=== PATIENT | female | born 1980 | race Caucasian/White ===

== ENCOUNTER 2023-04-26 02:03 | Observation (INO) ==
[2023-04-26] MEDS ORDERED: IOPAMIDOL 100 ML BOTTLE IV ONE (02:04)
[2023-04-26] MEDS ORDERED: 0.9 % SODIUM CHLORIDE 1,000 ML IV ONE (02:08)
[2023-04-26] MEDS ORDERED: PHENobarb/HYOSCY/ATROPINE/SCOP 1 DOSE BOTTLE PO ONE (02:19)
[2023-04-26] MEDS ORDERED: ONDANSETRON 4 MG/2 ML VIAL IV ONE (02:19)
[2023-04-26 02:33] LABS: POC Calcium, Ionized 1.11 (1.16-1.32); POC Creatinine 0.7 (0.6-1.2); POC Potassium 4.1 (3.3-5.1)
--- NOTE | 2023-04-26 02:41 | Emergency Department Note ---
Abdominal Pain HPI General Chief Complaint: Abdominal Pain Stated Complaint: upper abd pain Time Seen by Provider: 04/26/23 02:08 Source: patient Mode of arrival: ambulatory Limitations: no limitations History of Present Illness HPI Narrative: Narrative: Patient presents to the ED with complaints of acute on chronic abdominal pain. States he has had this abdominal pain for a few years. States over the last 3 weeks the pain has been more frequent over the last 48 hours the pain has become unbearable. She rates her pain 8/10. She reports in her epigastrium and radiates into her right upper quadrant. She reports associated nausea, fever and chills. Patient denies vomiting, diarrhea, dysuria, hematuria, urinary frequency, cardiac chest pain, heart palpitations, shortness of breath. Patient denies any other alleviating or aggravating factors. Related Data Home Medications Medication Instructions Recorded Confirmed No Known Home Meds 04/26/23 04/26/23 Allergies Allergy/AdvReac Type Severity Reaction Status Date / Time NO KNOWN DRUG ALLERGIES Allergy Unknown NONE Uncoded 04/04/15 18:59 Review of Systems ROS ROS Narrative: Narrative: All systems ED: reviewed and negative except as stated. [facility] Narrative Patient History Narrative: Narrative: Medical/Surgical/Family History All Active Problems (Updated 04/26/23 @ 06:21 by Con Hansen DO) Acute left-sided thoracic back pain (Acute) Acute cholecystitis (Acute) Social History Smoking Status: Current every day smoker Exam Narrative Narrative: Narrative: General Limitations: no limitations General appearance: Present grimacing; Absent in distress ENT ENT: Present normal oropharynx and mucous membranes moist Respiratory Respiratory: Present normal lung sounds bilaterally; Absent respiratory distress Cardiovascular Cardiovascular: Present regular rate and normal rhythm Adbominal Abdominal: Present soft, tenderness and normal bowel sounds Expanded Abdominal Abdominal Tenderness: Present RUQ and epigastrium Extremities Extremities: Present normal capillary refill Back Back: Absent CVA tenderness (R) or CVA tenderness (L) Neurological Neurological: Present oriented X3 and normal gait Psychiatric Psychiatric: Present normal affect and normal mood Skin Skin: Present warm (WNL) and intact Course Course Course Narrative: Patient was evaluated for abdominal pain. UA was obtained unremarkable. Urine was negative. Patient was given IV fluids, IV Toradol and IV fentanyl for discomfort. Labs were obtained show that patient had a normal white cell count or leukocytosis. Renal functions intact. CT abdomen pelvis obtained with image reviewed myself which revealed cholecystitis. IV morphine was ordered for additional pain relief. Case was discussed with on-call surgeon, Dr. Zuñiga, who request that her CRP and abdominal ultrasound be obtained and he will come down and evaluate the patient before making his recommendations. Consultations Consultation #1: Case discussed with on-call surgeon, Dr. Zuñiga, who recommends that we obtain a CRP and abdominal ultrasound he will come down evaluate the patient. Time: 06:18 Vital Signs Vital signs: Vital Signs Temperature 98.1 F 04/26/23 02:04 Pulse Rate 84 04/26/23 02:04 Respiratory Rate 18 04/26/23 02:04 Blood Pressure 180/105 04/26/23 02:04 Pulse Oximetry (%) 98 04/26/23 02:04 Oxygen Delivery Method Room Air 04/26/23 02:04 Temperature 98.1 F 04/26/23 02:04 Pulse Rate 73 04/26/23 05:56 Respiratory Rate 18 04/26/23 03:35 Blood Pressure 145/106 04/26/23 05:56 Pulse Oximetry (%) 97 04/26/23 05:02 Oxygen Delivery Method Room Air 04/26/23 02:04 [facility] MDM Narrative Medical decision making narrative: Narrative: Differential Diagnosis Differential Diagnosis: Cholecystitis, GERD, pancreatitis Medical Records Medical records reviewed: Yes I reviewed the patient's medical records. Lab Data Lab results reviewed: Yes I reviewed the patient's lab results. 04/26/23 02:20 Labs: Lab Results 04/26/23 04/26/23 04/26/23 Range/Units 02:20 02:20 02:30 WBC 9.0 (4.5-11.0) K/mcL RBC 4.66 (3.59-5.38) M/mcL Hgb 15.2 (11.2-15.7) g/dL Hct 43.8 (34.1-44.9) % POC Hct 46.0 (36-48) MCV 94.0 (80.0-100.0) fL MCH 32.6 (26.0-34.0) pg MCHC 34.7 (31.0-36.0) g/dL RDW 11.9 (11.5-14.5) % Plt Count 387 (140-440) K/mcL MPV 9.1 (8.8-12.5) fL Immature Gran % (Auto) 0.3 (0.0-0.5) % Neut % (Auto) 67.5 (38.0-78.0) % Lymph % (Auto) 22.9 (15.5-49.0) % [place] % (Auto) 6.7 (1.0-12.0) % Eos % (Auto) 2.0 (0.0-7.0) % Baso % (Auto) 0.6 (0.0-2.0) % Lymph # (Auto) 2.07 (1.50-4.80) K/mcL [place] # (Auto) 0.60 (0.10-0.90) K/mcL Eos # (Auto) 0.18 (0.00-0.70) K/mcL Baso # (Auto) 0.05 (0.00-0.30) K/mcL Immature Gran # 0.03 (0.00-0.05) K/mcl Absolute Neutrophils 6.09 (1.80-8.00) K/mcL POC Sodium 137 (133-145) POC Potassium 4.1 (3.3-5.1) POC Chloride 99 (96-108) POC Total CO2 26.0 (22-30) POC Anion Gap 17.0 H (8.0-16.0) POC BUN 11 (6-20) POC Creatinine 0.7 (0.6-1.2) POC Glucose 113 H (70-105) POC WB Ioniz Calcium 1.11 L (1.16-1.32) Total Bilirubin 0.5 (0.1-1.0) mg/dL Direct Bilirubin < 0.2 (0-0.3) mg/dL AST 18 (<32) U/L ALT 15 (<40) U/L Alkaline Phosphatase 108 (39-117) U/L Total Protein 7.6 (5.9-8.4) gm/dL Albumin 4.5 (3.2-5.2) gm/dL Globulin 3.1 (2.2-3.7) gm/dL Amylase 27 L (28-100) U/L Lipase 23 (7-60) U/L Radiology Data Radiology results reviewed: Yes I reviewed the patient's radiology results. Radiology results narrative: CT abdomen pelvis obtained with image reviewed myself consistent with cholecystitis Core Measures AMI Core Measures Followed: Yes Discharge Plan Patient/Caregiver Discharge Instructions Pt seen by AUT[employer] TENDER/PA only: No Clinical Impression: Acute cholecystitis Patient Disposition: Still a Patient Condition: Good Follow up with: Ortega Francois ARNP [Primary Care Provider] - Prescriptions: No Action No Known Home Meds
[2023-04-26 03:14] LABS: Basophils # (Auto) 0.05 K/mcL (0.00-0.30); Basophils % (Auto) 0.6 % (0.0-2.0); Eosinophils # (Auto) 0.18 K/mcL (0.00-0.70); Hematocrit 43.8 % (34.1-44.9); Hemoglobin 15.2 g/dL (11.2-15.7); Lymphocytes # (Auto) 2.07 K/mcL (1.50-4.80); Lymphocytes % (Auto) 22.9 % (15.5-49.0); Mean Corpuscular HGB Conc 34.7 g/dL (31.0-36.0); Mean Platelet Volume 9.1 fL (8.8-12.5); Monocytes % (Auto) 6.7 % (1.0-12.0); Neutrophils % (Auto) 67.5 % (38.0-78.0); Platelet Count 387 K/mcL (140-440); RBC 4.66 M/mcL (3.59-5.38); Red Cell Distribution Width 11.9 % (11.5-14.5)
[2023-04-26] MEDS ORDERED: fentaNYL 100 MCG/2 ML VIAL IV ONE ×2 (03:15→12:58)
[2023-04-26] MEDS ORDERED: KETOROLAC 30 MG/ML VIAL IV ONE (03:15)
[2023-04-26 03:24] LABS: ALT/SGPT 15 U/L (<40); AST/SGOT 18 U/L (<32); Albumin 4.5 gm/dL (3.2-5.2); Alkaline Phosphatase 108 U/L (39-117); Amylase 27 U/L (28-100); Bilirubin,Direct < 0.2 mg/dL (0-0.3); Bilirubin,Total 0.5 mg/dL (0.1-1.0); Globulin 3.1 gm/dL (2.2-3.7)
[2023-04-26] MEDS ORDERED: morphine 2 MG/ML VIAL IV ONE (03:38)
[2023-04-26] MEDS: morphine 2 MG/ML VIAL IV PRN ×3 (03:54→07:38)
--- NOTE | 2023-04-26 05:17 | Cat Scan Report ---
CLINICAL INFORMATION: Upper abdominal pain. COMPARISON: None. TECHNIQUE: 80 cc of Isovue-370 were injected intravenously, and 60 seconds later, 0.625 mm helical slices were obtained from the mid heart through the subtrochanteric regions. Following reconstruction, 2.5 mm sagittal, coronal and axial reformatted images were processed and reviewed at bone, lung and soft tissue windows. Five minutes later, 0.625 mm helical slices were obtained from the mid heart through the kidneys and viewed at soft tissue windows.The exam was performed using radiation dose optimization techniques including, but not limited to, automated exposure control, adjustment of the mA and/or kV according to patient size and use of iterative reconstruction technique. FINDINGS: The lung bases are clear. No effusions. The visualized heart is grossly normal. Abdominal images show the joint mild gallbladder enlargement with wall thickening and multiple stones compatible with cholecystitis. The intrahepatic and common bile ducts are normal caliber the CBD is 6 mm. Mild fatty changes noted within the liver. There is an 11 mm simple cyst in the left hepatic lobe. Both kidneys, adrenal glands, spleen, pancreas and aorta, including aortic branches, are normal in size, configuration and attenuation without focal lesion. There is no free air, free fluid or adenopathy. Pelvic images show normal urinary bladder. Uterus and both ovaries are normal in size, configuration and attenuation. The stomach, small bowel, and large bowel are grossly normal. Appendectomy change are acknowledged Bone windows show no osseous abnormality IMPRESSION: Cholecystitis Interpreted and Authenticated by: Jony Guerin 04/26/23
--- NOTE | 2023-04-26 09:30 | Ultrasound Report ---
CLINICAL INFORMATION: Right upper quadrant pain COMPARISON: Abdomen and pelvic CT 04/26/2023 FINDINGS: Gallbladder is mildly enlarged with diffuse wall thickening and focal tenderness and multiple stones. Findings compatible with cholecystitis. Common bile duct is normal-5 mm. The liver is diffusely hyperechoic compatible with fatty change also seen on CT. A 1.3 cm cyst is seen in the left hepatic lobe. There is no free fluid. IMPRESSION: Cholecystitis. Interpreted and Authenticated by: Jony Guerin 04/26/23
--- NOTE | 2023-04-26 09:52 | General Surgery Consult Note ---
HPI Date of Consult Consult Date: 04/26/23 Requesting physician: Con Hansen Primary Care Provider: RALF King Consult Narrative Chief complaint: Abdominal Pain Reason for consult: Cholecystitis History of present illness: Lisa is seen in consultation today after presenting in the middle of the night with unremitting RUQ abdominal pain that has been present and unabated for the past 2 weeks. She has had some knowledge of symptomatic gallstones for years per history that has been managed with largely dietary changes through intermittent bouts. She has not been jaundiced and denies any known liver disease. Both US and CT here are suggestive of wall thickening and stones. Vitals and WBC are normal with CRP only minimally elevated. Her overall health is good and she denies any chronic pulmonary issues. There is some remote history for what sounds like Paroxysmal A Fib but she is not currently medicated in any way for it and is not on any oral anticoagulants. She has had a past Laparoscopic salpingoopherectomy many years ago now. cc:: CC: Review of Systems All systems: reviewed and no additional remarkable complaints except as stated Constitutional Additional comments: no changes EENT Additional comments: no changes Cardiovascular Additional comments: no chest pain Respiratory Additional comments: no cough or SOB Gastrointestinal Additional comments: see HPI Genitourinary Additional comments: no issues Integumentary Additional comments: no changes Neurological Additional comments: no changes Hematologic/Lymphatic Additional comments: denies bleeding issues PFSH PFSH All Active Problems Acute left-sided thoracic back pain (Acute) Acute cholecystitis (Acute) Social History smoking status: Current every day smoker MEDS/ALLERGIES Home Medications and Allergies Home Medications Medication Instructions Recorded Confirmed Type No Known Home Meds 04/26/23 04/26/23 History Allergies Allergy/AdvReac Type Severity Reaction Status Date / Time NO KNOWN DRUG ALLERGIES Allergy Unknown NONE Uncoded 04/04/15 18:59 Physical Examination Vital Signs Vital signs: Temp Pulse Resp BP Pulse Ox O2 Del Method 98.1 F 69 18 134/101 97 Room Air 04/26/23 02:04 04/26/23 09:40 04/26/23 03:35 04/26/23 09:31 04/26/23 05:02 04/26/23 02:04 General physical appearance General physical exam: other (looks well, non toxic, no distress ) Eyes Eye exam: normal ocular movement; negative icteric ENT ENT exam: other (normal facial exam ) Head Head exam IM: Present atraumatic, normal inspection and normocephalic Neck Neck exam: no masses and trachea midline Cardiovascular Cardiovascular exam IM: Present RRR Respiratory Respiratory exam: normal respiratory effort Abdomen Abdomen: Present soft (soft and non distended, seems minimally tender in the RUQ, no peritoneal findings or other issues ) Integumentary Integumentary: Present other (normal appearing intact skin ) Neurologic Neurologic: Present other (grossly intact ) Results Labs 04/26/23 02:20 Labs: Abnormal lab results 04/26/23 04/26/23 04/26/23 Range/Units 02:11 02:20 02:30 POC Anion Gap 17.0 H (8.0-16.0) POC Glucose 113 H (70-105) POC WB Ioniz Calcium 1.11 L (1.16-1.32) C-Reactive Protein 1.30 H (0.03-0.80) mg/dL Amylase 27 L (28-100) U/L Diabetes panel 04/26/23 Range/Units 02:20 AST 18 (<32) U/L ALT 15 (<40) U/L Alkaline Phosphatase 108 (39-117) U/L Total Protein 7.6 (5.9-8.4) gm/dL Albumin 4.5 (3.2-5.2) gm/dL Calcium panel 04/26/23 Range/Units 02:20 Albumin 4.5 (3.2-5.2) gm/dL Adrenal panel 04/26/23 Range/Units 02:20 Total Bilirubin 0.5 (0.1-1.0) mg/dL AST 18 (<32) U/L ALT 15 (<40) U/L Alkaline Phosphatase 108 (39-117) U/L Total Protein 7.6 (5.9-8.4) gm/dL Albumin 4.5 (3.2-5.2) gm/dL All other labs normal. A/P Assessment and plan (1) Acute cholecystitis: Assessment and plan: Symptomatic Cholelithiasis and presumed Acute and/or Chronic Cholecystitis Issues and options are reviewed and discussed Admission for Laparoscopic Cholecystectomy is recommend and discussed at length with a full review of Risks, Benefits, Potential Complications and Alternative Treatment Options all reviewed at length including but not limited to conversion to open, partial or subtotal removal, drain placement, unexpected findings and outcomes, injury to surrounding structures and other issues as well Will make arrangements and proceed to the OR when able Status: Acute Time Spent With Patient Time: Total time spent is greater than 50% in coordination of care (as documented) at patient's floor/unit and/or counseling patient:
[2023-04-26] MEDS ORDERED: PIPERACILLIN SODIUM/TAZOBACTAM 3.375 GM in DEXTROSE 5% IN WATER 50 ML IV SCH ×2 (10:15→11:30)
[2023-04-26] MEDS: DEXTROSE 5%-LR 1,000 ML IV SCH ×2 (11:23→20:32)
[2023-04-26] MEDS: HYDROmorphone 0.5 MG/0.5 ML SYRINGE IV PRN ×4 (11:23→21:53)
[2023-04-26] MEDS: ONDANSETRON 4 MG/2 ML VIAL IV PRN ×2 (11:24→16:42)
[2023-04-26] MEDS ORDERED: DEXAMETHASONE 10 MG/ML VIAL ONE (12:58)
[2023-04-26] MEDS ORDERED: SUGAMMADEX SODIUM 200 MG/2 ML VIAL IV ONE (12:58)
[2023-04-26] MEDS ORDERED: ROCURONIUM 10 MG/ML ML IV ONE (12:58)
[2023-04-26] MEDS ORDERED: ONDANSETRON 4 MG/2 ML VIAL ONE (12:58)
[2023-04-26] MEDS ORDERED: PHENYLephrine 1 MG/10 ML SYRINGE (ANEST) ONE (12:58)
[2023-04-26] MEDS ORDERED: HYDROmorphone 1 MG/ML SYRINGE ONE (12:58)
[2023-04-26] MEDS ORDERED: PROPOFOL 200 MG/20 ML VIAL IV ONE (12:58)
[2023-04-26] MEDS ORDERED: ONDANSETRON 4 MG/2 ML VIAL IV PRN (14:55)
[2023-04-26] MEDS ORDERED: fentaNYL 100 MCG/2 ML VIAL IV PRN (14:55)
[2023-04-26] MEDS ORDERED: IPRATROPIUM/ALBUTEROL 3 ML AMPUL.NEB NEB PRN (14:55)
[2023-04-26] MEDS ORDERED: NALOXONE HCL 0.4 MG/ML VIAL IV PRN (14:55)
[2023-04-26] MEDS ORDERED: MEPERIDINE 25 MG/ML VIAL IV PRN (14:55)
[2023-04-26] MEDS ORDERED: METOCLOPRAMIDE 10 MG/2 ML VIAL IV PRN (14:55)
[2023-04-26] MEDS ORDERED: FLUMAZENIL 0.1 MG/ML ML IV PRN (14:55)
[2023-04-26] MEDS ORDERED: LACTATED RINGERS 1,000 ML IV SCH (15:00)
[2023-04-26] MEDS ORDERED: BUPIVACAINE W/EPI 0.25% 50 ML VIAL IJ ONE (15:47)
--- NOTE | 2023-04-26 16:58 | Brief Operative Note ---
Brief Operative Note Date of procedure: 04/26/23 Pre-op diagnosis: Acute Cholecystitis Post-op diagnosis: same Procedure: Laparoscopic Cholecystectomy Grafts/Implants: No Anesthesia: GETA Findings: Markedly inflamed gallbladder with 2 large stones lodged in the Neck of the Gallbladder - 19 FR Round Navin left in place Complications: none Surgeon: Abelardo Zuñiga Estimated blood loss (cc): 5 Specimens Removed/Pathology: other (gallbladder ) Condition: stable Disposition: PACU
[2023-04-26] MEDS: PIPERACILLIN SODIUM/TAZOBACTAM 3.375 GM in DEXTROSE 5% IN WATER 50 ML IV SCH ×2 (18:18→23:50)
[2023-04-27] MEDS: DEXTROSE 5%-LR 1,000 ML IV SCH ×2 (02:48→13:04)
[2023-04-27] MEDS: HYDROmorphone 0.5 MG/0.5 ML SYRINGE IV PRN ×3 (02:52→12:55)
[2023-04-27] MEDS: PIPERACILLIN SODIUM/TAZOBACTAM 3.375 GM in DEXTROSE 5% IN WATER 50 ML IV SCH ×2 (05:57→12:44)
--- NOTE | 2023-04-27 09:30 | Operative Note ---
DATE OF OPERATION: 04/26/2023 PREOPERATIVE DIAGNOSIS: Acute cholecystitis. POSTOPERATIVE DIAGNOSIS: Acute cholecystitis. OPERATIVE PROCEDURE: Laparoscopic cholecystectomy. SURGEON: Abelardo Zuñiga M.D. ANESTHESIA: General. PREOPERATIVE MEDICATIONS: Zosyn 3.375 grams IV. INDICATIONS: The patient is a 42-year-old female who presented to the Emergency Room in the middle of the night with a several week history of increasing worsening right upper quadrant abdominal pain in the setting of known gallstones and frequent bouts of biliary colic over quite a few years. As she was seen in the Emergency Room and felt to be fairly tender in the right upper abdomen, CT scan was obtained, which demonstrated findings consistent with cholecystitis as there was some wall thickening in and around the area. White count was normal. Her CRP was only minimally elevated and her vital signs were completely normal. We requested a corroborating ultrasound, which confirmed a significant elevation of wall thickness as well as pericholecystic fluid and a positive sonographic Ulrich's. We saw her in consultation and recommended surgery. Risks, benefits, potential complications, and alternative treatment options were all discussed at length including, but not limited to bleeding, infection, cosmetic dissatisfaction, abnormal scarring, potential need for additional surgery, possible conversion to an open procedure, potential for biliary leak drain placement, potential for injury to surrounding structures and all other issues of of concern. She wished to undergo the procedure as discussed. DESCRIPTION OF PROCEDURE: The patient was taken to the OR and placed supine on the OR table and placed under general anesthesia and intubated. Bilateral SCDs were applied. All pressure sensitive areas were carefully padded. Arms were placed at her sides. Procedure began with access of the peritoneal cavity after her abdomen was widely prepped and draped in a sterile fashion. Utilizing a 0-degree 5-mm scope through Visiport in the right upper abdomen. Once we obtained peritoneal access, pneumoperitoneum was obtained with high-flow CO2 insufflation. We then checked the area of access to make sure there was no evidence of injury; none was seen. We then changed out the 0-degree scope for a 30-degree scope placed our remaining trocars; this included an additional 5 mm right upper abdominal trocar, a 5 mm supraumbilical trocar, and a 12 mm midepigastric subxiphoid trocar. The camera was resited to the periumbilical site. The patient was placed in a reverse Trendelenburg position, airplaned towards the left side. The gallbladder was identified. The fundus was very edematous and swollen. It was too tense to so a needle decompression device was utilized to aspirate 20-30 cc of a very thick viscous bile out of the fundus of the gallbladder, which allowed us to have enough pliability to grasp it and retract it cephalad towards the right shoulder. There was tremendous edema throughout and it appeared there were 2 large stones lodged at the neck of the gallbladder. We were able to identify the duodenum and the inferior aspect of the field and then also could see what appeared to be the bile duct coursing up into the juany from here. We made a small opening on the lateral aspect of the posterior hepatocystic triangle and then gradually working anteriorly and posteriorly we were able to identify the gallbladder infundibulum and then fully dissect out the hepatocystic triangle and eventually identifying the cystic duct, which was somewhat distended. Once we had adequately cleared off the entire hepatocystic triangle anteriorly and posteriorly, we were able to clearly identify the cystic duct and the cystic artery as the only two structures entering the gallbladder and felt we had confirmed our critical view of safety. We went ahead and continued medially and performed a very extensive cystic plate dissection to make sure there were no interposed structures and none were seen. The cystic artery was then divided between clips and the cystic duct was transected just above its junction point with the neck of the gallbladder with a single fire and 35 mm endovascular KALA stapler without difficulty. Staple line was then grasped and retracted towards the right shoulder as well and then the remainder of the gallbladder was easily dissected out of the overlying gallbladder fossa and removed as much of this dissection was already complete. The gallbladder was then placed in an EndoCatch and removed through the midepigastric 12 mm trocar site without difficulty. We then replaced this trocar and irrigated the area out extensively, but we made sure there was no active bleeding or hemorrhage. Because of the fact that this was an emergency procedure and she had severe cholecystitis,I elected to place a drain into that and then we brought a 19-Greek round Navin into the field and it was exited through the lateral 5 mm trocar site, and the trocar was removed. The drain was situated properly and secured in place with a 3-0 silk suture. We then made sure there was no active bleeding or hemorrhage; none was seen. The 12 mm trocar was then removed in the subxiphoid location. We then closed the fascia here with an interrupted 0 Vicryl suture utilizing standard technique with an interrupted fascial closure device. We then removed our remaining trocars and relieved pneumoperitoneum without issue. The incisions were closed with interrupted 3-0 Vicryl and 4-0 Monocryl sutures, respectively. Steri-Strips and sterile dressings were applied. The patient was awakened, extubated, and transferred to PACU in satisfactory condition. There were no apparent complications or issues. Sponge, needle and instrument counts were correct. FINDINGS: As discussed above. [email or web address] Job ID: [id number] Doc ID: [id number] Abelardo Zuñiga M.D.
--- NOTE | 2023-04-27 14:58 | General Surgery Progress Note ---
SUBJECTIVE Subjective Patient information: Note initiated : 04/27/23 at 2:56 pm Service Date, if different from initiated Date: [] Patient: Lisa Alberto 42 y/o F admitted on 04/26/23. Chief Complaint: [] Doing well, feels much improved overall, pain control is good and doing ok with clears Constitutional Vitals: Vital Signs Temp Pulse Resp BP Pulse Ox O2 Del Method O2 Flow Rate 97.8 F 81 16 147/99 95 Room Air 2 04/27/23 12:00 04/27/23 12:00 04/27/23 12:00 04/27/23 12:00 04/27/23 12:00 04/27/23 12:00 04/26/23 19:29 Period Temp Pulse Resp BP Sys/Edmonds Pulse Ox O2 Del Method O2 Flow Rate Last 24 Hr 97.1 F-98.7 F 70-88 11-18 111-147/63-107 84-97 Nasal Cannula- Room Air 0-4 Intake and Output 04/27/23 04/27/23 04/27/23 03:59 11:59 19:59 Intake Total 174 45 2358 Output Total 30 40 Balance 366 61 3559 Weight 239 lb Intake & Output: Intake & Output 04/27/23 04/27/23 04/27/23 03:59 11:59 19:59 Intake Total 012 22 5169 Output Total 30 40 Balance 494 15 4174 Weight 239 lb Intake: IV 166 41 9745 Dextrose 5%-Lactated Ringers 1, 685 1000 000 ml @ 100 mls/hr IV .Q10H NEYMAR Rx#:[id number] Zosyn 3.375 gm In Dextrose 5% 50 50 50 in Water 50 ml @ 100 mls/hr IV Q6H NEYMAR Rx#:[id number] Oral 250 1120 Output: Drainage 30 40 Right Upper Abdomen SAM Drain 30 40 Other: Meal Lunch Percent of Meal Consumed 100% Feeding Ability Independent # Voids 1 1 Exam: Looks well, no distress, pleasantly conversant Respiratory Respiratory exam: Present normal respiratory exam Cardiovascular Cardiovascular exam: Present normal rate and rhythm GI/Abdominal Additional comments: soft and non distended, non tender, dressings dry, JPD is scant and benign, non bilious A/P Assessment and plan (1) Acute cholecystitis: Assessment and plan: Acute Cholecystitis POD #1 Laparoscopic Cholecystectomy Doing Well Home later today with drain removal prior to discharge Advance diet and increase activity Status: Acute Time Spent With Patient Time: Total time spent is greater than 50% in coordination of care (as documented) at patient's floor/unit and/or counseling patient:
[2023-04-27] MEDS ORDERED: HYDROcodone/APAP 5/325MG TABLET PO PRN (15:00)
--- NOTE | 2023-05-03 08:35 | Discharge Summary ---
DATE OF ADMISSION: 04/26/2023 DATE OF DISCHARGE: 04/27/2023 ADMITTING DIAGNOSIS: Acute cholecystitis. DISCHARGE DIAGNOSES: Acute cholecystitis status post laparoscopic cholecystectomy. ADMITTING PHYSICIAN: Abelardo Zuñiga M.D. DISCHARGING PHYSICIAN: Abelardo Zuñiga M.D. INDICATIONS FOR ADMISSION AND HOSPITAL COURSE: The patient is a 42-year-old female who was seen in consultation in the ER on 04/26/2023 with severe right upper quadrant pain and discomfort along with radiographic and laboratory findings consistent with acute cholecystitis as well as clinical findings consistent with that. We recommended admission for surgery, which she underwent on 04/26/2023 in the form of a laparoscopic cholecystectomy. The details of this can be found in a separately-dictated operative report. On the morning of 04/27/2023, she was found to be doing quite a bit better and felt well enough to be discharged and was later on that day. A drain had been placed in the operating room. It was removed prior to discharge. DISPOSITION: Home with clinic followup. IN-HOSPITAL COMPLICATIONS: None. IN-HOSPITAL PROCEDURES: Laparoscopic cholecystectomy on 04/26/2023. [email or web address] Job ID: [id number] Doc ID: [id number] Abelardo Zuñiga M.D.
== END 2023-04-27 17:50 | disposition home or self-care (01) ==
LOC: MEDSUR 02:03 → ED 02:03 → MEDSUR 11:03
PROVIDERS: ADMIT Surgery Surgical Critical Care; ATTEND Surgery Surgical Critical Care